=== PATIENT | female | born 1985 | race Caucasian/White ===

== ENCOUNTER 2017-04-26 06:50 | Day surgery (SDC) | payer OTHER, BC ==
[~2017-04-26 06:50] MED LIST: RINGERS SOLUTION,LACTATED 1,000 ML IV PRN
[2017-04-26] MEDS ORDERED: RINGERS SOLUTION,LACTATED 1,000 ML IV ONE (07:40)
[2017-04-26] MEDS ORDERED: LIDOCAINE HCL/EPINEPHRINE 50 ML VIAL IJ ONE ×2 (08:25)
--- NOTE | 2017-04-26 08:56 | OR ---
Operative Report - Dictated Report Narrative: DATE OF PROCEDURE: 04/26/2017 INDICATION: 31-year-old with PREOPERATIVE DIAGNOSIS: Dysmenorrhea, endometrial thickening on pelvic ultrasound consistent with polyps POSTOPERATIVE DIAGNOSIS: Same PROCEDURE: Hysteroscopy, D&C SURGEON: Nelda Vincent D.O. SALES REPRESENTATIVE CONSULTANT: Samantha ANESTHESIA: IV sedation, Paracervical block ESTIMATED BLOOD LOSS: minimal URINE OUTPUT: not recorded FLUID REPLACEMENT: 400 mL FINDINGS: Uterus sounded to 9 cm. Sessile polypoid-like endometrial lining. SPECIMEN(S): Endometrial curettings TECHNIQUE: The patient was taken to the operating room and placed in dorsal lithotomy position after adequate IV sedation was obtained. After sterile prep and drape, the anterior lip of the cervix was grasped with a long Allis clamp. A paracervical block was given using a 1% lidocaine with epinephrine solution. The uterus sounded to 9 cm. The 5 mm hysteroscope was inserted into the uterine cavity with findings as noted above. Using the curet, the entire uterine cavity was curettaged. The hysteroscope was reinserted noting thorough sampling of the entire uterine cavity. Sponge, lap, instrument, needle count correct x 2. DISPOSITION: The patient was transferred to the post anesthesia care unit in good condition.
[2017-04-26] MEDS ORDERED: MORPHINE SULFATE 2 MG/ML DISP.SYRIN IV PRN (08:59)
[2017-04-26] MEDS ORDERED: oxyCODONE HCL/ACETAMINOPHEN 1 TAB TABLET PO PRN (09:00)
[2017-04-26] MEDS ORDERED: IBUPROFEN 800 MG TABLET PO PRN (09:01)
[2017-04-26 10:14] VITALS: BP 124/70
== END 2017-04-26 06:51 | disposition home or self-care (01) ==
LOC: AMB 06:50
PROVIDERS: ATTEND Obstetrics & Gynecology
PROC: 0UDB8ZX Extraction of Endometrium, Via Natural or Artificial Opening Endoscopic, Diagnostic (ICD-10-PCS; principal; 2017-04-26 08:55)
DX: N84.0 Polyp of corpus uteri (principal); N94.6 Dysmenorrhea, unspecified; E03.9 Hypothyroidism, unspecified; D64.9 Anemia, unspecified; F17.210 Nicotine dependence, cigarettes, uncomplicated; Z68.41 Body mass index [BMI] 40.0-44.9, adult

== ENCOUNTER 2020-11-09 13:50 | Observation (INO) ==
[2020-11-09] MEDS ORDERED: NIFEdipine 10 MG CAPSULE PO STA (14:39)
[2020-11-09] MEDS: NIFEdipine 10 MG CAPSULE PO PRN ×2 (15:32→16:47)
[2020-11-09] MEDS ORDERED: MAGNESIUM SULFATE IN WATER 50 ML, MAGNESIUM SULFATE IN WATER 50 ML IV ONE ×2 (15:42)
[2020-11-09] MEDS ORDERED: MAGNESIUM SULFATE IN WATER 1,000 ML IV SCH (15:45)
[2020-11-09] MEDS ORDERED: LABETALOL HCL 5 MG/ML VIAL IV STA ×2 (17:35→18:09)
[2020-11-09] MEDS ORDERED: LABETALOL HCL 5 MG/ML VIAL IV ONE (18:00)
--- NOTE | 2020-11-09 18:09 | HP ---
Chief Complaint - Chief Complaint Date of Service: 11/09/20 Time of Service: 17:56 Chief Complaint: LE swelling History of Present Illness: 34 yo at 27w4d presents to L&D from office for severe range elevated blood pressures. Patient had some mild epigastric pain after eating salsa which has since resolved. She denies headache, visual changes, n/v/f/c, fatigue, cough, or sore throat. This complicated by anxiety, CHTN, DM-type II (metformin/now no meds), hypotension, incompetent cervix (s/p Kaminski cerclage 07/29/20), morbid obesity (BMI 46.9), and now superimposed preeclampsia with severe features (BP). Rh positive Rubella immune GBS not done. Medical History (Last Reviewed 11/09/20 @ 18:18 by Eulogio Vincent DO) Diabetes type 2, controlled (Chronic) History of pre-eclampsia (Chronic) Hypertension (Chronic) Hypothyroidism (Chronic) Morbid obesity with BMI of 40.0-44.9, adult (Chronic) H/O incompetent cervix, currently (Acute) Cerclage x 2 Pre-eclampsia (Acute) Shoulder contusion (Acute) Anxiety Female hirsutism Fetus or affected by incompetent cervix of mother History of UTI Hypertension Onset Date: ~09/20/19 Hypothyroidism Onset Date: ~10/2016 Insulin resistance Onset Date: ~04/08/17 PCOS (polycystic ovarian syndrome) Onset Date: ~03/22/17 Pre-diabetes Sinusitis Anemia Onset Date: ~2013 with Dysmenorrhea Onset Date: ~04/26/17 demise Onset Date: ~08/30/12 Preeclampsia Onset Date: ~09/03/14 Thickened endometrium Onset Date: ~04/26/17 polyps Surgical History: Surgical History (Last Reviewed 11/09/20 @ 18:18 by Eulogio Vincent DO) Vaginal delivery (Acute) History of cervical cerclage Onset Date: ~03/28/14 [facility] prior ablation treatment Onset Date: Unknown History of cervical cerclage Onset Date: ~07/29/20 [facility] Cervical [id number]. [place]te History of dilation and curettage History of hysteroscopy Onset Date: ~04/26/17 with D&C-no atypia or malignant neoplasia identified Family History: Family History (Last Reviewed 11/09/20 @ 18:18 by Eulogio Vincent DO) Mother Diabetes Hypothyroidism Hypertension Father Unknown family medical history Social History: (Last Reviewed 11/09/20 @ 18:18 by Eulogio Vincent DO) Social History: intermediate: No Marital status: household members: spouse number of children: 1 current occupational status: employed current occupation: teacher Highest level of school completed/degree received: Bachelor's degree Service: No Tobacco: Smoking Status: Former smoker how long ago did patient quit smoking: about 2-3 years ago second hand exposure: No Alcohol: alcohol intake: never Substance Use: substance use type: does not use Dietary Habits: caffeine: Yes Exercise: Physical activity functional status: normal ROM and activity Review Of Systems (GEN) - Review of Systems Generalized/Overall Review: Present: No Symptoms Reported EENTM: Present: No Symptoms Reported Respiratory: Present: No Symptoms Reported Cardiac: Present: No Symptoms Reported Abdominal: Present: Other - epigastric pain - resolved in L&D Genitourinary: Present: No Symptoms Reported Musculoskeletal: Present: No Symptoms Reported Neurological: Present: Anxiety. Absent: Headache, Numbness, Parasthesia, Seizure, Tingling, Tremors, Weakness Skin: Present: No Symptoms Reported Endocrine: Present: No Symptoms Reported Immunizations: IMMUNIZATION HX History of Influenza Vaccine No Hx Pneumococcal Vaccination No Allergies/Adverse Reactions: Allergies Allergy/AdvReac Type Severity Reaction Status Date / Time No Known Allergies Allergy Verified 11/09/20 13:05 Home Medications: HOME MEDICATIONS hydroxyzine HCl 50 mg tablet 50 mg PO Q6H PRN #30 tab 09/20/19 [Last Taken Unknown] metformin 750 mg tablet,extended release 24 hr 750 mg PO DAILY #90 tab 01/24/20 [Last Taken 09/28/20] Pnv95/Iron Fum/Folic Acid [ Tablet] 1 ea PO DAILY 07/29/20 [Last Taken Unknown] nifedipine 30 mg tablet,extended release 24 hr See Rx Instructions .ROUTE .COMPLEX #90 unknown measurement unit code: tablet 09/16/20 [Last Taken 11/08/20] levothyroxine 137 mcg tablet 137 mcg PO DAILY #30 tab 10/16/20 [Last Taken 11/09/20] Aspirin [Low Dose Aspirin EC] 81 mg PO 11/09/20 [Last Taken Unknown] Exam - Exam Vital Signs: Vital Signs - Last Taken Temp 37.2 C 11/09/20 14:48 Pulse 128 H 11/09/20 17:41 Resp 22 H 11/09/20 14:48 BP 184/86 H 11/09/20 16:47 Pulse Ox 100 11/09/20 14:48 Constitutional: Present: Alert, Oriented x3, Cooperative, Mild distress - anxious, Morbidly obese ENT Exam: Present: hearing grossly normal Neck: Present: non-tender, trachea midline. Absent: thyromegaly Breasts: Present: Exam deferred Respiratory: Present: lungs clear, no respiratory distress Cardiovascular/Chest: Present: regular rate, rhythm, edema - 1+ b/l LE Abdomen: Present: soft, nontender, no rebound tenderness, obese, other - gravid. Absent: tender, guarding /Rectal: Present: Exam deferred Extremity: Present: no calf tenderness, lower extremity edema Skin Exam: Present: normal color, warm/dry, no cyanosis Neurologic: Present: alert, normal mood/affect - anxious, oriented x 3 Appearance: Present: appropriate appearance, appropriate insight Eye contact: Present: cooperative, good eye contact Thoughts: Present: normal thought pattern Diagnostic Studies: Pr/Cr ratio: voided 71901 mg/g, St. cath 1089 mg/g. AST 57 Assessment/Plan - Assessment/Plan (1) Severe preeclampsia Assessment: BP not responding to nifedipine 10mg PO x 3, labetalol 10mg IV x 2. Started on magnesium sulfate 6g load then 2g/h. Betamethasone 12 mg IM x1. Transfer to [facility] for further management. Discussed with Dr. Germain Julian who will be accepting care. Problem: Acute Qualifiers: Trimester: second trimester Qualified Code(s): O14.12 - Severe pre- eclampsia, second trimester (2) Hypertension Problem: Chronic Qualifiers: Hypertension type: unspecified Qualified Code(s): I10 - Essential (primary) hypertension (3) Kaminski cerclage present Assessment: placed 07/29/20. Mersiline knot at 12 o'clock. 1 Prolene suture placed below knot for easy removal (ends left approximately 4cm long) Problem: Acute (4) H/O incompetent cervix, currently Problem: Chronic (5) Diabetes type 2, controlled Assessment: HgA1C <5. Off metformin since 09/28/20. Problem: Chronic Qualifiers: Diabetes mellitus long term acute care registered nurse insulin use: without skilled nursing use Diabetes mellitus complication status: with unspecified complications Qualified Code(s): E11.8 - Type 2 diabetes mellitus with unspecified complications (6) Hypothyroidism Problem: Chronic Qualifiers: Hypothyroidism type: unspecified Qualified Code(s): E03.9 - Hypothyroidism, unspecified (7) Adult BMI 45.0-49.9 kg/sq m Problem: Acute (8) Anxiety Assessment: Controlled with hydroxyzine 25 mg PO q 4h PRN. Problem: Acute
[2020-11-09] MEDS ORDERED: LABETALOL HCL 200 MG TABLET PO STA (18:10)
[2020-11-09] MEDS ORDERED: BETAMETHASONE ACETATE,SOD PHOS 6 MG/ML VIAL IM ONE (18:11)
[2020-11-09] MEDS ORDERED: LABETALOL HCL 100 MG TABLET ONE (18:25)
[2020-11-09 18:35] VITALS: BP 178/84
--- NOTE | 2020-11-09 19:11 | DS ---
Transfer Discharge Summary - Diagnosis(s)/Problems (1) Severe preeclampsia Problem: Acute (2) Hypertension Problem: Chronic (3) Kaminski cerclage present Problem: Acute (4) H/O incompetent cervix, currently Problem: Chronic (5) Diabetes type 2, controlled Problem: Chronic (6) Hypothyroidism Problem: Chronic (7) Adult BMI 45.0-49.9 kg/sq m Problem: Chronic (8) Anxiety Problem: Chronic - Course Description of Stay: 34 yo at 27w4d with CHTN admitted to L&D for management of uncontrolled blood pressures in severe range. Prot/Cr ratio markedly increased from baseline of 108 at 12 wks to 10,792 today at 27w4d. BP finally controlled with total of nifedipine 30mg (10mg x3) PO, labetalol 20mg (10mg x2) IV and 200mg PO. Patient transferred to [facility] for further evaluation/tx. Consultation Done:: [facility] Procedures Performed: see notes below - IV and PO antihypertensives, telemetry, and toco monitoring, IM steroids - Results and Findings Results and Findings: See Labs. Pertinent positive labs: Pr/Cr ratio: voided 10,792mg/g, st. cath 1089mg/g. AST 57. - Medications Medications: Active Medications Magnesium Sulfate (Magnesium Sulfate 40 Gm) 1,000 mls @ 50 mls/hr IV .Q20H [facility]; Protocol Stop: 12/09/20 15:46 Last Admin: 11/09/20 16:43 Dose: 50 mls/hr Documented by: Nifedipine (Nifedipine 10 Mg Capsule) 10 mg PO ONCE PRN PRN Reason: Blood Pressure Stop: 12/09/20 15:13 Last Admin: 11/09/20 16:47 Dose: 10 mg Documented by: Discontinued Medications Betamethasone Acet/Betameth SodPhos (Betamethasone Acetate,Sod Phos 6 Mg/Ml Vial) 12 mg IM ONCE ONE Stop: 11/09/20 18:12 Last Admin: 11/09/20 18:25 Dose: 12 mg Documented by: Magnesium Sulfate/ Magnesium (Sulfate) 100 mls @ 200 mls/hr IV ONCE ONE; Protocol Stop: 11/09/20 16:11 Last Admin: 11/09/20 16:04 Dose: 200 mls/hr Documented by: Labetalol HCl (Labetalol Hcl 5 Mg/Ml Vial) 10 mg IV ONCE STA Stop: 11/09/20 17:36 Last Admin: 11/09/20 17:42 Dose: 10 mg Documented by: Labetalol HCl (Labetalol Hcl 5 Mg/Ml Vial) 10 mg IV ONCE ONE Stop: 11/09/20 18:01 Last Admin: 11/09/20 18:09 Dose: 10 mg Documented by: Labetalol HCl (Labetalol Hcl 200 Mg Tablet) 200 mg PO ONCE STA Stop: 11/09/20 18:11 Last Admin: 11/09/20 18:34 Dose: 200 mg Documented by: Nifedipine (Nifedipine 10 Mg Capsule) 10 mg PO ONCE STA Stop: 11/09/20 14:40 Last Admin: 11/09/20 14:46 Dose: 10 mg Documented by: - Disposition Disposition: Still a patient Condition: Stable Discharge Date: 11/09/20 Discharge Time: 19:09
== END 2020-11-09 19:05 | disposition short-term general hospital (02) ==
LOC: LAB → OB 13:50 → OBCLINIC 13:50
PROVIDERS: ADMIT Obstetrics & Gynecology; ATTEND Obstetrics & Gynecology
DX: O14.12 Severe pre-eclampsia, second trimester; E11.9 Type 2 diabetes mellitus without complications; O16.2 Unspecified maternal hypertension, second trimester; Z3A.27 27 weeks gestation of pregnancy